=== PATIENT | male | born 1950 | race Caucasian/White ===

== ENCOUNTER → 2016-11-14 | Day surgery (SDC) | payer MEDICARE ==
[~2016-11-14] MED LIST: AMLO10 PO; AMLO5TAB2 PO; ASPI1TAB91 PO; BETH10 PO; BUPR100CR PO; BUPR150T5 PO; CARV25TA PO; CITA40TA4 PO; CLON1TAB PO; GLYB5TAB3 PO; HOUR ENERGY; HYDR25TA5 PO; INSU1.2I SQ; INSU1INJ14 SQ; LACTATED RINGER'S 1000 ML INJ 1,000 ML ONE; LEVO50TA4 PO; LOSA25TA PO; METF-382 PO; METF1000 PO; MULT-135 PO; MULTTAB67 PO; OMEP20TA PO; PROPOFOL 100 MG/10 ML INJ IV ONE; URSO300C2 PO; ZOCO10TA PO
--- NOTE | 2016-11-14 09:17 | GIPROC ---
[facility] [address] [facility], [address] EGD PROCEDURE REPORT EXAM DATE: 11/14/2016 PATIENT NAME: Randall Estes MR #: [id number] BIRTHDATE: 1950 ATTENDING: Pat Mariscal MD ORDER #: [id number] CHIEF SECURITY OFFICER: Marlys Dominguez MAMMALOGY TEACHER STATUS: outpatient INDICATIONS: The patient is a 66 yr old male here for an EGD due to history of esophageal reflux PROCEDURE PERFORMED: EGD w/ biopsy MEDICATIONS: None and Per Anesthesia. TOPICAL ANESTHETIC: CONSENT: The patient understands the risks and benefits of the procedure and understands that these risks include, but are not limited to: sedation, allergic reaction, infection, perforation and/or bleeding. Alternative means of evaluation and treatment include, among others: physical exam, x-rays, and/or surgical intervention. The patient elects to proceed with this endoscopic procedure. medical equipment was checked for proper function. Hand hygiene and appropriate measures for infection prevention was taken. After the risks, benefits and alternatives of the procedure were thoroughly explained, Informed consent was verified, confirmed and timeout was successfully executed by the treatment team. The patient was anesthetized with topical anesthesia and the EC-[id number] ([id number]) endoscope was introduced through the mouth and advanced to the second portion of the duodenum. Retroflexed views revealed no abnormalities The gastroscope was then slowly withdrawn and removed. 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 The length of circumferential Bailey's was 1cm ([place] C1). There was no nodular mucosa noted in the Bailey's segment. A biopsy was performed using cold forceps. Sample sent for histology. STOMACH: There was erythematous moderate gastritis in the gastric antrum. A biopsy was performed using cold forceps. Sample sent for histology. A polypoid shaped sessile polyp ranging between 3-7mm in size with a friable surface was found in the gastric fundus. A biopsy was performed using cold forceps. Sample sent for histology. DUODENUM: The duodenal mucosa appeared normal. ADVERSE EVENTS: There were no complications. IMPRESSIONS: 1. 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 There was erythematous gastritis in the gastric antrum; biopsy was performed 3. Sessile polyp ranging between 3-7mm in size was found in the gastric fundus; biopsy was performed 4. Normal duodenal mucosa 5. Retroflexed views revealed no abnormalities RECOMMENDATIONS: 1. Await biopsy results. Biopsy results will not be ready for 7-10 days. If you don't hear from us in two weeks, call our office for biopsy results. 2. Anti-reflux regimen 3. Continue PPI 4. Avoid NSAIDS PATIENT CONDITION: stable DISPOSITION: Home REPEAT EXAM: Return 1 year EGD Pat Mariscal MD eSigned: Pat Mariscal MD 11/14/2016 9:16 AM cc: Michoacano Kinney M.D. PATIENT NAME: Randall Estes MR#: [id number]
== END | disposition home or self-care (01) ==
LOC: ESDC 08:09
PROVIDERS: ATTEND Internal Medicine Gastroenterology
DX: K21.9 Gastro-esophageal reflux disease without esophagitis (principal); K22.70 Barrett's esophagus without dysplasia; K29.70 Gastritis, unspecified, without bleeding; K31.7 Polyp of stomach and duodenum; E11.9 Type 2 diabetes mellitus without complications; Z79.4 Long term (current) use of insulin
CPT/HCPCS: 00740; 43239; 82948; 88305; 88312; J3010; J7120

== ENCOUNTER 2016-12-14 17:26 | Observation (INO) | payer MEDICARE ==
[~2016-12-14] VITALS: Ht 172.7 cm; Wt 123.0 kg
[~2016-12-14 17:26] MED LIST changes: -AMLO5TAB2 PO; -ASPI1TAB91 PO; -BUPR150T5 PO; -CITA40TA4 PO; -INSU1INJ14 SQ; -LACTATED RINGER'S 1000 ML INJ 1,000 ML ONE; -LOSA25TA PO; -METF1000 PO; -MULTTAB67 PO; -PROPOFOL 100 MG/10 ML INJ IV ONE; -URSO300C2 PO
[2016-12-14 17:28] VITALS: BP 188/88; PULSE 66; RESP 20; TEMP 98.4; O2SAT 98
[2016-12-14] MEDS: NITROGLYCERIN 0.4 MG SL 25 TABS/BTL SL SCH ×3 (18:30→18:40)
[2016-12-14] MEDS ORDERED: ASPIRIN 325 MG TAB PO ONE (18:30)
[2016-12-14] MEDS ORDERED: SODIUM CHLORIDE 0.9% FLUSH 10 ML FLUSH IVF PRN (18:30)
[2016-12-14 18:38] VITALS: BP 191/90; PULSE 65; PULSE 66; RESP 18; O2SAT 98
[2016-12-14] MEDS ORDERED: AMLO5TAB2 PO (19:01)
[2016-12-14] MEDS ORDERED: METF1000 PO (19:01)
[2016-12-14] MEDS ORDERED: BUPR150T5 PO (19:01)
[2016-12-14] MEDS ORDERED: INSU1INJ14 SQ (19:02)
[2016-12-14] MEDS ORDERED: LOSA25TA PO (19:02)
[2016-12-14] MEDS ORDERED: ASPI1TAB91 PO (19:02)
[2016-12-14] MEDS ORDERED: CITA40TA4 PO (19:02)
[2016-12-14] MEDS ORDERED: MULTTAB67 PO (19:02)
[2016-12-14] MEDS ORDERED: URSO300C2 PO (19:06)
--- NOTE | 2016-12-14 19:20 | RADRPT ---
EXAM DATE/TIME: 12/14/2016 19:03 [facility] COMPARISON: CHEST SINGLE AP, May 12, 2010, 14:06. INDICATIONS : Chest pain. MEDICAL HISTORY : None. SURGICAL HISTORY : None. ENCOUNTER: Initial ACUITY: 2 days PAIN SCORE: 6/10 LOCATION: Right chest FINDINGS: A single view of the chest demonstrates the lungs to be symmetrically aerated without evidence of mas s, infiltrate or effusion. The cardiomediastinal contours are unremarkable. Osseous structures are intact. CONCLUSION: No evidence of acute cardiopulmonary disease. Justo Ramos MD on December 14, 2016 at 19:17 Board Certified Radiologist. This report was verified electronically.
[2016-12-14 19:21] LABS: AUTOMATED NEUTROPHIL # 6.7 TH/MM3 (1.8-7.7); BASOPHIL % 0.5 % (0.0-2.0); EOSINOPHIL # 0.3 TH/MM3 (0-0.4); EOSINOPHIL % 3.1 % (0.0-4.0); HEMATOCRIT 38.5 % (39.0-51.0); HEMO FLAGS DIFF FINAL; LYMPH % 22.1 % (9.0-44.0); LYMPHOCYTE # 2.2 TH/MM3 (1.0-4.8); MEAN CELL VOLUME 87.4 FL (80.0-100.0); MEAN CORPUSCULAR HEMOGLOBIN 29.1 PG (27.0-34.0); MEAN CORPUSCULAR HGB CONC 33.3 % (32.0-36.0); MONO % 6.1 % (0.0-8.0); NEUT % 68.2 % (16.0-70.0); PLATELET COUNT 169 TH/MM3 (150-450); RED BLOOD COUNT 4.41 MIL/MM3 (4.50-5.90); RED CELL DISTRIBUTION WIDTH 14.9 % (11.6-17.2); WHITE BLOOD COUNT 9.8 TH/MM3 (4.0-11.0)
[2016-12-14 19:31] LABS: APTT (PATIENT) 30.3 SEC (24.3-30.1); INTERNATIONAL NORMALIZED RATIO 1.1 RATIO; PROTHROMBIN TIME - PATIENT 11.7 SEC (9.8-11.6)
--- NOTE | 2016-12-14 19:35 | PD ---
HPI Chief Complaint: Chest Pain Time Seen by Provider: 17:58 Travel History International Travel<30 days: No Contact w/Intl Traveler<30days: No Traveled to known affect area: No History of Present Illness HPI This is a 66-year-old male patient with a past medical history of hypertension and type 2 diabetes hypercholesterolemia who presents with a complaint of intermittent chest pain noted to be on the right side of the chest described as sharp in nature. Patient notes associated lightheadedness and dizziness prior to the onset of pain. Chest pain started last p.m. chest pain noted as 5 out of 10 in intensity. Chest pain reported to be nonradiating and not associated with shortness of breath nausea vomiting or sweating. Patient states he had a cardiac stress test in the past more than 5 years ago and he is uncertain of the results. Patient did not take any aspirin prior to presentation to the ER. PFSH Past Medical History Arthritis: No Blood Disorders: No Anxiety: Yes Depression: Yes Heart Rhythm Problems: No Cancer: No Cardiovascular Problems: Yes (HTN) High Cholesterol: Yes Chest Pain: No Congestive Heart Failure: No Diabetes: Yes Patient Takes Glucophage: Yes Diminished Hearing: No Endocrine: Yes Gastrointestinal Disorders: Yes (Gastroparesis,GERD) GERD: Yes Glaucoma: No Genitourinary: No Hepatitis: No Hiatal Hernia: No Hypertension: Yes Immune Disorder: No Implanted Vascular Access Dvce: No Kidney Stones: No Medical other: No Musculoskeletal: Yes (SPINAL STENOSIS) Neurologic: Yes (NECK) Psychiatric: No Reproductive: No Respiratory: Yes (SLEEP APNEA-CPAP) Immunizations Current: Yes Myocardial Infarction: No Pancreatitis: Yes Renal Failure: Yes Thyroid Disease: No Ulcer: No Past Surgical History Abdominal Surgery: Yes (HERNIA, ERCP- REMOVAL OF STENT/LAP NIDHI) Appendectomy: No Cardiac Surgery: No Cholecystectomy: Yes Ear Surgery: No Endocrine Surgery: No Eye Surgery: No Genitourinary Surgery: Yes Gynecologic Surgery: No Joint Replacement: No Neurologic Surgery: Yes (CERVICAL FUSION) Oral Surgery: No Pacemaker: No Thoracic Surgery: No Other Surgery: Yes ( HYDROCELECTOMY) Social History Alcohol Use: Yes (RARELY) Tobacco Use: No Substance Use: No Allergies-Medications (Allergen,Severity, Reaction): Coded Allergies: Cat Dander (Verified Allergy, Severe, 06/15/16) Shrimp (Verified Allergy, Severe, Hives, 06/15/16) Vancomycin (Verified Adverse Reaction, Severe, DAVID SYNDROME, 06/15/16) Reported Meds & Prescriptions Reported Meds & Active Scripts Active Reported Ursodiol 300 Mg Cap 300 Mg PO TID Tresiba Flextouch Pen Inj (Insulin Degludec Inj) 300 unit/3 ML Pen 8 Units SQ DAILY Losartan (Losartan Potassium) 25 Mg Tab 25 Mg PO DAILY Citalopram (Citalopram Hydrobromide) 40 Mg Tab 40 Mg PO DAILY Aspirin Adult Low Strength (Aspirin) 81 Mg Tabdr 81 Mg PO DAILY Multiple Vitamin 1 Tab 1 Tab PO DAILY Metformin (Metformin HCl) 1,000 Mg Tab 500 Mg PO BID With meals Bupropion HCl ER 12 HR (Bupropion HCl) 150 Mg Tab 150 Mg PO Q12HR Amlodipine (Amlodipine Besylate) 5 Mg Tab 5 Mg PO DAILY Zocor (Simvastatin) 10 Mg Tab 10 Mg PO DAILY Omeprazole 20 Mg Tab 20 Mg PO BID Take 30-60 minutes before breakfast and dinner Levothyroxine (Levothyroxine Sodium) 50 Mcg Tab 50 Mcg PO DAILY Glyburide 5 Mg Tab 5 Mg PO BID Take with meals at the same time each day Clonazepam 1 Mg Tab 1 Mg PO DAILY PRN Carvedilol 25 Mg Tab 25 Mg PO BID Urecholine (Bethanechol Chloride) 10 Mg Tab 10 Mg PO Q8HR Hydrochlorothiazide 25 Mg Tab 25 Mg PO DAILY [5 hour energy] Review of Systems ROS Limitations: Other: (none ) General / Constitutional: No: Fever, Chills, Weight Gain, Weight Loss, Other Eyes: No: Diploplia, Blurred Vision, Photophobia, Drainage, Redness, Foreign Body Sensation, Pain, Tearing, Blind Spots, Visual changes, Blindness, Other HENT: No: Headaches, Vertigo, Lightheadedness, Sore Throat, Rhinitis, Rhinorrhea, Congestion, Nosebleed, Neck Stiffness, Neck Pain, Masses, Gingival Bleeding, Dental Difficulties, Ear Discharge, Earache, Other Cardiovascular: Positive: Chest Pain or Discomfort, Other (lightheadedness), No: Palpitations, Irregular Rhythm, Tachycardia, Diaphoresis, Syncope, Dyspnea on exertion, Varicosities, Edema, Cyanosis, Varicosities, Phlebitis, Claudication Respiratory: No: Cough, Shortness of Breath, Wheezing, Sneezing, Orthopnea, Hemoptysis, Stridor, Night Sweats, Pleuritic Pain, Other Gastrointestinal: No: Nausea, Vomiting, Diarrhea, Abdominal Pain, Hematemesis, Hematochezia, Constipation, Changes in Bowel Habits, Indigestion, Dysphagia, Loss of Appetite, Other Genitourinary: No: Urgency, Frequency, Dysuria, Nocturia, Hematuria, Decreased Urinary Output, Oliguria, Hesitancy, Dribbling, Incontinence, Pelvic Pain, Flank Pain, Dyspareunia, Discharge, Dysmenorrhea, Menorrhagia, Metorrhagia, Vaginal Bleeding, Other Musculoskeletal: No: Myalgias, Arthralgias, Limited ROM, Weakness, Cramping, Edema, Pain, Atrophy, Other Skin: No Rash, No Itching, No Dryness, No Lumps, No Hives, No Change in Pigmentation, No Change in nails, No Alopecia, No Lesions, No Breast Lumps, No Breast Tenderness, No Breast Swelling, No Other Neurologic: Positive: Other (dizziness associated with lightheadedness), No: Weakness, Dizziness, Syncope, Focal Abnormalities, Coordination Problem, Tremor , Ataxia, Headache, Change in Mentation, Slurred Speech, Paresthesia, Incontinence, Seizures, Sensory Disturbance Psychiatric: No: Anxiety, Depression, Suicidal Ideations, Disorder of Thought, Mood Disorder, Substance Abuse, Homicidal Ideation, Other Endocrine: No: Heat Intolerance, Cold Intolerance, Polyuria, Polydipsia, Other Hematologic/Lymphatic: No: Easy Bruising, Lymph Node Enlargement, Other Physical Exam Narrative GENERAL: 66-year-old male in no apparent distress SKIN: Focused skin assessment warm/dry.no lesions no cyanosis no erythema HEAD: Atraumatic. Normocephalic. EYES: Pupils equal and round and reactive . No scleral icterus. No injection or drainage. ENT: No nasal bleeding or discharge. Mucous membranes pink and moist. NECK: Trachea midline. No JVD. CARDIOVASCULAR: S1-S2 appreciated PMI is displaced laterally. Regular rate and rhythm. No murmur appreciated. Pulses normal throughout. Chest wall nontender on palpation RESPIRATORY: No accessory muscle use. Clear to auscultation. Breath sounds equal bilaterally. GASTROINTESTINAL: Abdomen soft, non-tender, nondistended. Hepatic and splenic margins not palpable. Bowel sounds normal. No peritoneal signs. MUSCULOSKELETAL: No obvious deformities. No clubbing. No cyanosis. No edema. NEUROLOGICAL: Awake and alert and oriented 3.. No obvious cranial nerve deficits. Motor and sensory exam grossly within normal limits. Normal speech. No meningeal signs. PSYCHIATRIC: Appropriate mood and affect; insight and judgment normal. No suicidal or homicidal ideation. Data Data Last Documented VS Vital Signs Date Time Temp Pulse Resp B/P Pulse Ox O2 Delivery O2 Flow Rate FiO2 12/14/16 18:38 66 18 98 Room Air 12/14/16 18:38 191/90 12/14/16 17:28 98.4 Orders Electrocardiogram (12/14/16 18:19) Basic Metabolic Panel (Bmp) (12/14/16 18:19) Ckmb (Isoenzyme) Profile (12/14/16 18:19) Complete Blood Count With Diff (12/14/16 18:19) Magnesium (Mg) (12/14/16 18:19) Prothrombin Time / Inr (Pt) (12/14/16 18:19) Act Partial Throm Time (Ptt) (12/14/16 18:19) Troponin I (12/14/16 18:19) Chest, Single Ap (12/14/16 18:19) Ecg Monitoring (12/14/16 18:19) Bilateral Bp Monitoring (12/14/16 18:19) Iv Access Insert/Monitor (12/14/16 18:19) Oximetry (12/14/16 18:19) Oxygen Administration (12/14/16 18:19) Aspirin (Aspirin) (12/14/16 18:30) Sodium Chloride 0.9% Flush (Ns Flush) (12/14/16 18:30) Nitroglycerin Sl (Nitrostat Sl) (12/14/16 18:30) CKMB (12/14/16 18:50) CKMB% (12/14/16 18:50) Admit Order (Ed Use Only) (12/14/16 19:56) Activity Bed Rest With Brp (12/14/16 19:56) Vital Signs (Adult) Q4H (12/14/16 19:56) Cardiac Rhythm .As Directed (12/14/16 19:56) Notify Dr: Other .PRN (12/14/16 19:56) Notify Parameters (12/14/16 19:56) Resp Oxygen Nasal Cannula (12/14/16 ) Diet Npo (12/15/16 Breakfast) Ckmb (Isoenzyme) Profile (12/14/16 21:00) Ckmb (Isoenzyme) Profile (12/15/16 00:00) Troponin I (12/14/16 21:00) Troponin I (12/15/16 00:00) Electrocardiogram (12/14/16 19:56) Electrocardiogram (12/14/16 22:56) ^ Obtain (12/14/16 19:56) Sodium Chloride 0.9% Flush (Ns Flush) (12/14/16 20:00) Sodium Chloride 0.9% Flush (Ns Flush) (12/14/16 21:00) Nitroglycerin Sl (Nitrostat Sl) (12/14/16 20:00) Foreign Agent / Telemetry KATHIA.Q8H (12/14/16 19:56) Labs Laboratory Tests Test 12/14/16 18:50 White Blood Count 9.8 TH/MM3 Red Blood Count 4.41 MIL/MM3 Hemoglobin 12.8 GM/DL Hematocrit 38.5 % Mean Corpuscular Volume 87.4 FL Mean Corpuscular Hemoglobin 29.1 PG Mean Corpuscular Hemoglobin 33.3 % Concent Red Cell Distribution Width 14.9 % Platelet Count 169 TH/MM3 Mean Platelet Volume 8.7 FL Neutrophils (%) (Auto) 68.2 % Lymphocytes (%) (Auto) 22.1 % Monocytes (%) (Auto) 6.1 % Eosinophils (%) (Auto) 3.1 % Basophils (%) (Auto) 0.5 % Neutrophils # (Auto) 6.7 TH/MM3 Lymphocytes # (Auto) 2.2 TH/MM3 Monocytes # (Auto) 0.6 TH/MM3 Eosinophils # (Auto) 0.3 TH/MM3 Basophils # (Auto) 0.0 TH/MM3 CBC Comment DIFF FINAL Differential Comment Prothrombin Time 11.7 SEC Prothromb Time International 1.1 RATIO Ratio Activated Partial 30.3 SEC Thromboplast Time Sodium Level 136 MEQ/L Potassium Level 3.4 MEQ/L Chloride Level 98 MEQ/L Carbon Dioxide Level 26.2 MEQ/L Anion Gap 12 MEQ/L Blood Urea Nitrogen 28 MG/DL Creatinine 1.43 MG/DL Estimat Glomerular Filtration 50 ML/MIN Rate Random Glucose 133 MG/DL Calcium Level 8.6 MG/DL Magnesium Level 2.3 MG/DL Total Creatine Kinase 102 U/L Creatine Kinase MB 0.8 NG/ML Troponin I LESS THAN 0.02 NG/ML MDM Medical Decision Making Medical Screen Exam Complete: Yes Emergency Medical Condition: Yes Medical Record Reviewed: Yes Interpretation(s) EKG shows normal sinus rhythm left axis deviation and borderline LVH [address] elevation in lead V2 and Q waves in lead 3 Differential Diagnosis Differential differential diagnose acute coronary syndrome versus atypical chest pain lightheadedness and dizziness Narrative Course This is a 66-year-old male with a past medical history of hypertension and type 2 diabetes hypercholesterolemia who presents with a one-day history of right- sided chest pain associated with lightheadedness and dizziness. Chest pain reported to occur at rest as well as with exertion. EKG shows [address] elevation in V2 and Q waves in lead 3 only chest x-ray unremarkable troponin 1 negative patient given aspirin 325 mg orally. Initially ordered sublingual nitroglycerin every 5 minutes 3 as needed for pain. Patient states pain not ongoing so declined sublingual nitroglycerin. Ordered Nitropaste 1/2 inch. Patient to be admitted to the chest pain center for repeat cardiac enzymes every 3 hours reevaluation in the morning. For possible stress test. Procedures EKG Prior to Arrival: Yes HemaPrompt Point of Care Comment Rectal exam deferred patient declines stool guiac Diagnosis Primary Impression: Acute coronary Syndrome Admitting Information Admitting Physician Requests: Observation Condition: Stable Nadine Noyola MD Dec 14, 2016 19:35
[2016-12-14 19:47] LABS: CREATINE KINASE 102 U/L (39-308)
[2016-12-14 19:51] LABS: ANION GAP 12 MEQ/L (5-15); BICARBONATE 26.2 MEQ/L (21.0-32.0); BLOOD UREA NITROGEN 28 MG/DL (7-18); CHLORIDE 98 MEQ/L (98-107); GLOMERULAR FILTRATION RATE 50 ML/MIN (>89); MAGNESIUM 2.3 MG/DL (1.5-2.5); POTASSIUM 3.4 MEQ/L (3.5-5.1); SODIUM (NA) 136 MEQ/L (136-145)
[2016-12-14 20:00] LABS: CKMB 0.8 NG/ML (0.5-3.6)
[2016-12-14] MEDS ORDERED: SODIUM CHLORIDE 0.9% FLUSH 10 ML FLUSH IV FLUSH PRN (20:00)
[2016-12-14] MEDS ORDERED: NITROGLYCERIN 0.4 MG SL 25 TABS/BTL SL PRN (20:00)
[2016-12-14 20:07] VITALS: O2SAT 98
[2016-12-14] MEDS ORDERED: NITROGLYCERIN 2% OINT 1 GM PACKET TOPICAL ONE (20:15)
[2016-12-14] MEDS: SODIUM CHLORIDE 0.9% FLUSH 10 ML FLUSH IV FLUSH SCH (21:12)
[2016-12-14 21:59] VITALS: BP 185/87; PULSE 72; RESP 20; TEMP 98.1; O2SAT 95
[2016-12-14 22:51] LABS: CREATINE KINASE 96 U/L (39-308)
[2016-12-15 00:06] VITALS: BP 143/83; PULSE 77; RESP 19; TEMP 97.5; O2SAT 95
[2016-12-15 01:42] LABS: CREATINE KINASE 89 U/L (39-308)
[2016-12-15 03:04] VITALS: PULSE 80
[2016-12-15 05:07] VITALS: BP 148/67; PULSE 93; RESP 20; TEMP 96; O2SAT 96
[2016-12-15] MEDS ORDERED: ACETAMINOPHEN 500 MG CPLT PO PRN (07:15)
[2016-12-15] MEDS ORDERED: ONDANSETRON HCL 4 MG/2 ML VIAL IV PRN (07:15)
[2016-12-15 07:40] VITALS: PULSE 75
--- NOTE | 2016-12-15 07:46 | HHI.HP ---
HPI Primary Care Physician Coco Strong MD Chief Complaint Chest pain History of Present Illness 66-year-old male with significant medical history including diabetes type 2, hypertension, and hyperlipidemia presents to emergency room for further evaluation of chest pain. Onset Monday evening. Initially chest discomfort was intermittent, occurring every 1520 minutes. Location substernal. Characterized as "quick, stabbing pains." Duration of "no more than 2 seconds. " No radiation of pain. No known precipitating or relieving factors. Monday chest pain became more constant, therefore he went to [facility] urgent care. Chest pain nonexertional component. EKG was completed at urgent care and he was told EKG was slightly abnormal and directed to the ER. Approximately 2 weeks ago had a PCP appointment and a routine EKG was completed. At that time he was also told EKG was abnormal and was referred to Dr. Crawley for further evaluation. Appointment for Dr. Crawley is scheduled for next month. Review of Systems General: No fatigue,weakness, fever, chills, recent illness HEENT: No FORD, no vision changes, no nasal congestion or drainage CV: As stated above. No CP, pressure, no palpitations RESP: No SOB, cough, wheeze, or recent URI GI: No nausea, vomiting, bowel changes, diarrhea, or constipation. : No dysuria, urgency, frequency EXT: No lower leg edema, no paraesthesias MS: No discomfort or change in ROM NEURO: No difficulty with balance or motor/sensory deficits PSYCH: Anxiety and depression controlled on current medication regimen. SKIN: No rashes, no concerning lesions Past Family Social History Allergies: Coded Allergies: Cat Dander (Verified Allergy, Severe, 06/15/16) Shrimp (Verified Allergy, Severe, Hives, 06/15/16) Vancomycin (Verified Adverse Reaction, Severe, DAVID SYNDROME, 06/15/16) Past Medical History Hypertension, diabetes type 2, pancreatitis Past Surgical History Cholecystectomy, 2 cervical fusions, inguinal hernia repair Reported Medications Reported Ursodiol 300 Mg Cap 300 Mg PO TID Tresiba Flextouch Pen Inj (Insulin Degludec Inj) 300 unit/3 ML Pen 8 Units SQ DAILY Losartan (Losartan Potassium) 25 Mg Tab 25 Mg PO DAILY Citalopram (Citalopram Hydrobromide) 40 Mg Tab 40 Mg PO DAILY Aspirin Adult Low Strength (Aspirin) 81 Mg Tabdr 81 Mg PO DAILY Multiple Vitamin 1 Tab 1 Tab PO DAILY Metformin (Metformin HCl) 1,000 Mg Tab 500 Mg PO BID With meals Bupropion HCl ER 12 HR (Bupropion HCl) 150 Mg Tab 150 Mg PO Q12HR Amlodipine (Amlodipine Besylate) 5 Mg Tab 5 Mg PO DAILY Zocor (Simvastatin) 10 Mg Tab 10 Mg PO DAILY Omeprazole 20 Mg Tab 20 Mg PO BID Take 30-60 minutes before breakfast and dinner Levothyroxine (Levothyroxine Sodium) 50 Mcg Tab 50 Mcg PO DAILY Glyburide 5 Mg Tab 5 Mg PO BID Take with meals at the same time each day Clonazepam 1 Mg Tab 1 Mg PO DAILY PRN Carvedilol 25 Mg Tab 25 Mg PO BID Urecholine (Bethanechol Chloride) 10 Mg Tab 10 Mg PO Q8HR Hydrochlorothiazide 25 Mg Tab 25 Mg PO DAILY Active Ordered Medications Current Medications Medications (Trade) Dose Ordered Sig/Yael Route Start Time Stop Time Status Last Admin (Nitrostat Sl) 0.4 mg Q5M PRN SL 12/14/16 20:00 (Tylenol) 500 mg Q4H PRN PO 12/15/16 07:15 (Zofran Inj) 4 mg Q6H PRN IV 12/15/16 07:15 (Aspirin) 325 mg DAILY PO 12/15/16 09:00 Social History Known diabetes, hypertension, and hyperlipidemia. Lifelong nonsmoker. Denies any alcohol or illegal drug use. Ambulates independently. Past cardiac testing None Physical Exam Vital Signs Vital Signs Date Time Temp Pulse Resp B/P Pulse Ox O2 Delivery O2 Flow Rate FiO2 12/15/16 05:07 96.0 93 20 148/67 96 12/15/16 03:04 80 12/15/16 00:06 97.5 77 19 143/83 95 12/14/16 21:59 98.1 72 20 185/87 95 12/14/16 20:07 98 12/14/16 18:38 66 18 98 Room Air 12/14/16 18:38 98 Room Air 12/14/16 18:38 65 18 191/90 98 Room Air 12/14/16 18:38 66 69 98 Room Air 12/14/16 17:28 98.4 66 20 188/88 98 Room Air Physical Exam GENERAL: Alert WN, WD, NAD, pleasant, obese male HEAD: NC, AT EYES: Sclera clear, conjunctiva without injection NECK: Supple, no masses, trachea midline CV: RRR, without murmur, rub, gallop, no JVD, S1-S2 no S3-S4. RESP: Clear lungs throughout bilateral, no crackles, wheeze, rhonchi, symmetrical chest rise, nonlabored, able to speak in full sentences ABD: Soft, NT, ND, no masses, positive bowel tones EXT: Pulses +24, trace dependent edema MS: Normal tone 4 extremities, nontender, no obvious deformities, full range of motion NEURO: CN II through CN XII grossly intact, motor strength 5/5, gait WNL PSYCH: A+O 3, pleasant affect, appropriate speech, appropriate mood and affect , insight and judgment SKIN: Normal turgor, normal texture, no lesions, no rashes, brisk cap refill Laboratory Laboratory Tests Test 12/14/16 12/14/16 12/15/16 18:50 22:00 00:40 White Blood Count 9.8 Red Blood Count 4.41 Hemoglobin 12.8 Hematocrit 38.5 Mean Corpuscular Volume 87.4 Mean Corpuscular Hemoglobin 29.1 Mean Corpuscular Hemoglobin 33.3 Concent Red Cell Distribution Width 14.9 Platelet Count 169 Mean Platelet Volume 8.7 Neutrophils (%) (Auto) 68.2 Lymphocytes (%) (Auto) 22.1 Monocytes (%) (Auto) 6.1 Eosinophils (%) (Auto) 3.1 Basophils (%) (Auto) 0.5 Neutrophils # (Auto) 6.7 Lymphocytes # (Auto) 2.2 Monocytes # (Auto) 0.6 Eosinophils # (Auto) 0.3 Basophils # (Auto) 0.0 CBC Comment DIFF FINAL Differential Comment Prothrombin Time 11.7 Prothromb Time International 1.1 Ratio Activated Partial 30.3 Thromboplast Time Sodium Level 136 Potassium Level 3.4 Chloride Level 98 Carbon Dioxide Level 26.2 Anion Gap 12 Blood Urea Nitrogen 28 Creatinine 1.43 Estimat Glomerular Filtration 50 Rate Random Glucose 133 Calcium Level 8.6 Magnesium Level 2.3 Total Creatine Kinase 102 96 89 Creatine Kinase MB 0.8 Troponin I LESS THAN 0.02 LESS THAN 0.02 LESS THAN 0.02 Result Diagram: 12/14/16 0300 12/14/16 185 Imaging Last Impressions Chest X-Ray 12/14/16 181 Signed Impressions: Service Date/Time: Wednesday, December 14, 2016 19:03 - CONCLUSION: No evidence of acute cardiopulmonary disease. Justo Ramos MD Course EKGs Normal sinus rhythm, first-degree AV block, left axis deviation, poor R-wave progression, no ST or T-segment changes, septal Q waves noted unchanged from EKG in 2011 Assessment and Plan Assessment and Plan #1 Chest painadmitted to chest pain center. Ruled out with serial EKGs and cardiac enzymes. Seen and evaluated by Dr. Eron Ernst. Chest discomfort atypical however due to multiple risk factors will proceed with Lexiscan this a.m. If stress test unremarkable, will discharge later this afternoon. Discussed with patient if stress test unremarkable he may cancel referral appointment with Dr. Crawley. #2 Hypertensioncontinue losartan, amlodipine, and carvedilol. Continue to monitor. #3 Diabeteslow-dose SSI #4 Depressioncontinue Wellbutrin and Celexa Annetta Morrell Dec 15, 2016 07:46
[2016-12-15 07:58] VITALS: BP 164/81; PULSE 75; RESP 18; TEMP 97.8; O2SAT 98
[2016-12-15] MEDS ORDERED: GLUCAGON 1 MG/ML VIAL OTHER PRN (08:00)
[2016-12-15] MEDS ORDERED: DEXTROSE 50% IN WATER 50 ML VIAL(D50) IV PRN (08:00)
[2016-12-15] MEDS: SODIUM CHLORIDE 0.9% FLUSH 10 ML FLUSH IV FLUSH SCH (08:20)
[2016-12-15] MEDS ORDERED: MULTIVITAMIN TAB PO SCH (09:00)
[2016-12-15] MEDS ORDERED: ASPIRIN 325 MG TAB PO SCH (09:00)
[2016-12-15] MEDS ORDERED: LOSARTAN 25 MG TAB PO SCH (09:00)
[2016-12-15] MEDS ORDERED: PRAVASTATIN SOD 20 MG TAB PO SCH (09:00)
[2016-12-15] MEDS ORDERED: URSODIOL 300 MG CAP PO SCH (09:00)
[2016-12-15] MEDS ORDERED: PANTOPRAZOLE SOD 20 MG DELAYED RELEASE TAB PO SCH (09:00)
[2016-12-15] MEDS ORDERED: buPROPion HCL 150 MG SUSTAINED RELEASE TAB PO SCH (09:00)
[2016-12-15] MEDS ORDERED: amLODIPine BESYLATE 5 MG TAB PO SCH (09:00)
[2016-12-15] MEDS ORDERED: CITALOPRAM HYDROBROMIDE 40 MG TAB PO SCH (09:00)
[2016-12-15] MEDS ORDERED: CARVEDILOL 12.5 MG TAB PO SCH (09:00)
[2016-12-15] MEDS ORDERED: HYDROCHLOROTHIAZIDE 25 MG TAB PO SCH (09:00)
[2016-12-15] MEDS ORDERED: LEVOTHYROXINE SODIUM 50 MCG TAB PO SCH (09:00)
[2016-12-15] MEDS ORDERED: REGADENOSON INJ 0.4 MG/5 ML SYR ONE (09:47)
[2016-12-15] MEDS ORDERED: INSULIN ASPART SUPPLEMENTAL SCALE SQ SCH (11:00)
--- NOTE | 2016-12-15 11:56 | RADRPT ---
EXAM DATE/TIME: 12/15/2016 08:47 [facility] COMPARISON: No previous studies available for comparison. INDICATIONS : Right sided chest pain with dizziness for one day. Angina. DOSE: 35 mCi Tc99m Myoview at stress. 11 mCi Tc99m Myoview at rest. 0.4 mg Lexiscan STRESS SYMPTOMS: None. EJECTION FRACTION: 52% MEDICAL HISTORY : Diabetes mellitus type 2. Hypertension. Gastroesophageal reflux disease. SURGICAL HISTORY : Cholecystectomy. Fusion, cervical. ENCOUNTER: Initial ACUITY: 1 day PAIN SCALE: 5/10 LOCATION: Right chest TECHNIQUE: The patient underwent pharmacologic stress with infusion of prescribed dose. Continuous ECG tracing was monitored during stress. Gated SPECT imaging was performed after stress and conventional SPECT i maging was performed at rest. The examination was performed on a SPECT/CT scanner, both attenuation and non-corrected datasets were reviewed. FINDINGS: DISTRIBUTION: The maximum perfused segment at stress is in the anterolateral wall. PERFUSION STUDY: The pattern of perfusion at stress is within normal limits. GATED STUDY: There is intact wall motion and thickening without hypokinetic or dyskinetic segments. CONCLUSION: 1. No reversible perfusion defect to indicate stress-induced myocardial ischemia identified. RISK CATEGORY: Low (<1% Annual Mortality Rate) Rufus Pereira MD on December 15, 2016 at 11:54 Board Certified Radiologist. This report was verified electronically.
[2016-12-15 12:00] VITALS: BP 185/88; PULSE 64; RESP 18; TEMP 98.9; O2SAT 98
[2016-12-15] MEDS ORDERED: metFORMIN HCL 500 MG TAB PO SCH (12:15)
--- NOTE | 2016-12-15 12:19 | HHI.DCPOC ---
Discharge Care Plan Diagnosis: (1) Atypical chest pain (2) Diabetes (3) Hypertension Goals to Promote Your Health * To prevent worsening of your condition and complications * To maintain your health at the optimal level Directions to Meet Your Goals Take your medications as prescribed Follow your dietary instruction Follow activity as directed Keep your appointments as scheduled Take your immunizations and boosters as scheduled If your symptoms worsen call your PCP, if no PCP go to Urgent Care Center or Emergency Room Smoking is Dangerous to Your Health. Avoid second hand smoke Call the 24-hour hour crisis hotline for domestic abuse at Annetta Morrell Dec 15, 2016 12:19
[2016-12-15] MEDS ORDERED: BETHANECHOL CHL 10 MG TAB PO SCH (14:00)
[2016-12-15] MEDS ORDERED: glyBURIDE 5 MG TAB PO SCH (16:00)
--- NOTE | 2016-12-16 14:27 | EKG ---
Date Performed: 12/14/2016 Time Performed: 17:43:49 PTAGE: 66 years EKG: Sinus rhythm WITH FIRST DEGREE AV BLOCK INCOMPLETE RIGHT BUNDLE BRANCH BLOCK LEFT ANTERIOR FASCICULAR BLOCK MODER ATE VOLTAGE CRITERIA FOR LVH, CONSIDER NORMAL VARIANT ABNORMAL ECG NO PREVIOUS TRACING DOCTOR: Eron Ernst Interpretating Date/Time 12/16/2016 14:25:27
--- NOTE | 2016-12-16 14:27 | EKG ---
Date Performed: 12/15/2016 Time Performed: 00:11:24 PTAGE: 66 years EKG: Sinus rhythm WITH FIRST DEGREE AV BLOCK LEFT ANTERIOR FASCICULAR BLOCK VOLTAGE CRITERIA FOR LVH ABNORMAL ECG PREVIOUS TRACING : 12/14/2016 22.18 Since previous tracing, no significant change noted DOCTOR: Eron Ernst Interpretating Date/Time 12/16/2016 14:24:37
--- NOTE | 2016-12-16 14:27 | EKG ---
Date Performed: 12/14/2016 Time Performed: 22:18:21 PTAGE: 66 years EKG: Sinus rhythm LEFT ANTERIOR FASCICULAR BLOCK MODERATE VOLTAGE CRITERIA FOR LVH, CONSIDER NORMAL VARIANT PREVIOUS TRACING : 12/14/2016 17.43 Since previous tracing, no significant change noted DOCTOR: Eron Ernst Interpretating Date/Time 12/16/2016 14:24:58
--- NOTE | 2016-12-16 14:31 | TR ---
Date Performed: 12/15/2016 Time Performed: 09:33:39 DOCTOR: Eron Ernst DRUG LIST: CLINICAL HISTORY: REASON FOR TEST: REASON FOR ENDING: OBSERVATION: CONCLUSION: Lexiscan stress test was performed under standard four minute protocol. Radionuclid e was injected one minute prior to ending the test. No electrocardiographic abormalities were present to suggest ischemia. Nuclear imaging and interpretation are pending. COMMENTS:
== END 2016-12-15 13:51 | disposition home or self-care (01) ==
LOC: NEPC 17:26 → NEDA 20:01 → NEPHCDU 21:27
PROVIDERS: ADMIT Internal Medicine Cardiovascular Disease; ATTEND Internal Medicine Cardiovascular Disease
DX: R07.89 Other chest pain (principal); E11.9 Type 2 diabetes mellitus without complications; I10 Essential (primary) hypertension; F32.9 Major depressive disorder, single episode, unspecified; E78.5 Hyperlipidemia, unspecified; F41.9 Anxiety disorder, unspecified; E78.00 Pure hypercholesterolemia, unspecified; K21.9 Gastro-esophageal reflux disease without esophagitis; Z88.1 Allergy status to other antibiotic agents; Z91.013 Allergy to seafood; Z91.09 Other allergy status, other than to drugs and biological substances; Z79.82 Long term (current) use of aspirin; Z79.84 Long term (current) use of oral hypoglycemic drugs
CPT/HCPCS: 71010; 78452; 80048; 82550; 82552; 82948; 83735; 84484; 85025; 85610; 85730; 93005; 93017; 99285; A9502; G0378; J2785

== ENCOUNTER 2017-11-04 18:18 | Emergency (ER) | payer MEDICARE ==
[~2017-11-04] VITALS: Ht 172.7 cm; Wt 122.5 kg
[~2017-11-04 18:18] MED LIST changes: -AMLO10 PO; +AMLO5TAB2 PO; +ASPI81TA16 PO; +AUGM500T7 PO; -BUPR100CR PO; +BUPR150T5 PO; +CIPR-9 PO; +CITA40TA4 PO; -HOUR ENERGY; -INSU1.2I SQ; +INSU1INJ14 SQ; +LOSA25TA PO; -METF-382 PO; +METF1000 PO; -MULT-135 PO; +MULTTAB67 PO; -OMEP20TA PO; +OMEP20TA93 PO; +URSO300C2 PO
[2017-11-04 18:28] VITALS: BP 119/86; PULSE 72; RESP 18; TEMP 98.5; O2SAT 98
--- NOTE | 2017-11-04 18:59 | PD ---
HPI Chief Complaint: Fall Time Seen by Provider: 18:47 Travel History International Travel<30 days: No Contact w/Intl Traveler<30days: No Traveled to known affect area: No History of Present Illness HPI 67-year-old male with history of spinal stenosis, scheduled for outpatient MRI in the near future, here for evaluation of right lower back pain after a mechanical fall while doing gardening. The patient reports that he tripped backwards on a piece of equipment and fell into a lanier. He denies head injury or LOC. He landed onto his right hip/buttock. He has had constant pain in this area since then which is moderate, intermittently worse at times described as spasms, worse with movements, slightly improved with rest. He denies any other injuries aside from slight superficial abrasions to his right lateral leg. He has been able to ambulate and bear weight, however this causes some pain. No urinary incontinence. No paresthesias or motor deficits. PFSH Past Medical History Arthritis: No Blood Disorders: No Anxiety: Yes Depression: Yes Heart Rhythm Problems: No Cancer: No Cardiac Catheterization: No Cardiovascular Problems: Yes (HTN, ekg with dr. to couple weeks ago showed abnormality) High Cholesterol: No Chest Pain: No Congestive Heart Failure: No Diabetes: Yes Patient Takes Glucophage: Yes Diminished Hearing: No Endocrine: Yes Gastrointestinal Disorders: Yes (Gastroparesis,GERD) GERD: Yes Glaucoma: No Genitourinary: No Hepatitis: No Hiatal Hernia: No Hypertension: Yes Immune Disorder: No Implanted Vascular Access Dvce: No Kidney Stones: No Medical other: No Musculoskeletal: Yes (SPINAL STENOSIS) Neurologic: Yes (NECK) Psychiatric: No Reproductive: No Respiratory: Yes (SLEEP APNEA-CPAP) Immunizations Current: Yes Myocardial Infarction: No Pancreatitis: Yes Renal Failure: Yes Thyroid Disease: No Ulcer: No Tetanus Vaccination: Unknown Past Surgical History Abdominal Surgery: Yes (HERNIA, ERCP- REMOVAL OF STENT/LAP NIDHI) Appendectomy: No Cardiac Surgery: No Cholecystectomy: Yes Coronary Artery Bypass Graft: No Ear Surgery: No Endocrine Surgery: No Eye Surgery: No Genitourinary Surgery: Yes Gynecologic Surgery: No Joint Replacement: No Neurologic Surgery: Yes (CERVICAL FUSION) Oral Surgery: No Pacemaker: No Thoracic Surgery: No Other Surgery: Yes ( HYDROCELECTOMY) Social History Alcohol Use: Yes (RARELY) Tobacco Use: No Substance Use: No Allergies-Medications (Allergen,Severity, Reaction): Coded Allergies: cat dander (Unverified Allergy, Severe, 11/04/17) shrimp (Unverified Allergy, Severe, Hives, 11/04/17) vancomycin (Unverified Adverse Reaction, Severe, DAVID SYNDROME, 11/04/17) Reported Meds & Prescriptions Reported Meds & Active Scripts Active Reported Tresiba Flextouch Pen Inj (Insulin Degludec Inj) 300 unit/3 ML Pen 10 Units SQ DAILY Bupropion HCl 100 Mg Tab 100 Mg PO BID Ursodiol 300 Mg Cap 300 Mg PO TID Losartan (Losartan Potassium) 25 Mg Tab 25 Mg PO DAILY Citalopram (Citalopram Hydrobromide) 40 Mg Tab 40 Mg PO DAILY Aspirin Adult Low Strength (Aspirin) 81 Mg Tabdr 81 Mg PO DAILY Multiple Vitamin 1 Tab 1 Tab PO DAILY Metformin (Metformin HCl) 1,000 Mg Tab 1,000 Mg PO BID With meals Amlodipine (Amlodipine Besylate) 5 Mg Tab 5 Mg PO DAILY Zocor (Simvastatin) 10 Mg Tab 10 Mg PO DAILY Omeprazole 20 Mg Tab 20 Mg PO DAILY Take 30-60 minutes before breakfast and dinner Levothyroxine (Levothyroxine Sodium) 50 Mcg Tab 50 Mcg PO DAILY Glyburide 5 Mg Tab 5 Mg PO BID Take with meals at the same time each day Clonazepam 1 Mg Tab 1 Mg PO DAILY PRN Carvedilol 25 Mg Tab 25 Mg PO BID Urecholine (Bethanechol Chloride) 10 Mg Tab 10 Mg PO Q8HR Hydrochlorothiazide 25 Mg Tab 25 Mg PO DAILY Review of Systems Except as stated in HPI: all other systems reviewed are Neg Physical Exam Narrative GENERAL: Well-developed, well-nourished, awake, alert, comfortable, no apparent distress. SKIN: Focused skin assessment warm/dry. Superficial abrasions to right lateral/ anterior leg, no lacerations. HEAD: Atraumatic. Normocephalic. EYES: Pupils equal and round. No scleral icterus. No injection or drainage. ENT: No nasal bleeding or discharge. Mucous membranes pink and moist. NECK: Trachea midline. No JVD. No midline cervical spine step-off or tenderness. CARDIOVASCULAR: Regular rate and rhythm. Bilateral dorsalis pedis pulses are brisk and equal. RESPIRATORY: No accessory muscle use. Clear to auscultation. Breath sounds equal bilaterally. GASTROINTESTINAL: Abdomen soft, non-tender, nondistended. Hepatic and splenic margins not palpable. MUSCULOSKELETAL: No obvious deformities. No clubbing. No cyanosis. No edema. No midline thoracic or lumbar spine step-off or tenderness. There is moderate right SI joint tenderness. Normal range of flexion and extension in bilateral lower extremities at the hip, knee, and ankle joint with normal muscle strength. NEUROLOGICAL: Awake and alert. No obvious cranial nerve deficits. Motor grossly within normal limits. Normal speech. Bilateral lower extremities are neurovascularly intact. PSYCHIATRIC: Appropriate mood and affect; insight and judgment normal. Data Data Last Documented VS Vital Signs Date Time Temp Pulse Resp B/P (MAP) Pulse Ox O2 Delivery O2 Flow Rate FiO2 11/04/17 18:28 98.5 72 18 119/86 (97) 98 Orders Orders Spine, Lumbar Comp W/Obliq (11/04/17 ) Pelvis, Ap Only (Routine) (11/04/17 ) Morphine Inj (Morphine Inj) (11/04/17 19:00) Cyclobenzaprine (Flexeril) (11/04/17 19:00) MDM Medical Decision Making Medical Screen Exam Complete: Yes Emergency Medical Condition: Yes Differential Diagnosis Low back strain, vertebral fracture, pelvic fracture, hip fracture, contusion Narrative Course Vital signs are within normal limits. X-ray lumbar spine: CONCLUSION: 1. Degenerative changes and scoliosis of the lumbar spine. 2. No acute compression fracture, spondylolisthesis or spondylolysis. Pelvis x-ray: CONCLUSION: No acute fracture or dislocation. Degenerative changes involving the lower lumbar spine and bilateral hips. Patient was made aware of all findings. He was given IM morphine and oral Flexeril with some relief of pain. There are no physical exam findings of spinal cord compression. He believes he will be able to manage his symptoms at home and his will help him. I showed him some stretches that he can perform. He was advised to follow-up with his orthopedist Dr. Hilliard this week. He was informed on when to return to the emergency department. He verbalizes understanding and agreement with plan. Diagnosis Primary Impression: Lower back injury Qualified Codes: S39.92XA - Unspecified injury of lower back, initial encounter Referrals: Randy Hilliard MD 3 days Primary Care Physician 3 days Additional Instructions: Follow-up with your primary care physician this week. Follow-up with your orthopedist this week. Return to the emergency department for worsening symptoms or any other concerns. Scripts Cyclobenzaprine (Flexeril) 10 Mg Tab 10 MG PO BID for Muscle Spasm, #20 TAB 0 Refills Prov: Lowell Holland MD 11/04/17 Oxycodone-Acetaminophen (Percocet) 5-325 mg Tab 1 TAB PO Q6H Y for PAIN, #20 TAB 0 Refills Prov: Lowell Holland MD 11/04/17 Disposition: 01 DISCHARGE HOME Condition: Stable Lowell Holland MD November 04, 2017 18:59
[2017-11-04] MEDS ORDERED: MORPHINE SULFATE 8 MG/ML INJ IM ONE (19:00)
[2017-11-04] MEDS ORDERED: CYCLOBENZAPRINE HCL 10 MG TAB PO ONE (19:00)
[2017-11-04] MEDS ORDERED: BUPR100T4 PO (19:49)
[2017-11-04] MEDS ORDERED: INSU1INJ14 SQ (19:49)
--- NOTE | 2017-11-04 20:37 | RADRPT ---
EXAM DATE/TIME: 11/04/2017 20:11 [facility] COMPARISON: No previous studies available for comparison. INDICATIONS : Pain post fall. MEDICAL HISTORY : Hypertension. Gastroparesis. GERD. Pancreatitis. Renail failure. UTI. Diabetes. Hypothyroidism. Spina l stenosis. Osteoarthritis. SURGICAL HISTORY : Cholecystectomy. Hydrocelectomy. Cervical fusion. Hernia repair. ENCOUNTER: Initial ACUITY: 1 day PAIN SCORE: 10/10 LOCATION: Pelvis. FINDINGS: A single frontal view of the pelvis demonstrates no evidence of fracture. The bony pelvic ring is in tact. Bony mineralization is normal. Degenerative changes are noted involving the lower lumbar spin e and bilateral hips. The soft tissues are intact. CONCLUSION: No acute fracture or dislocation. Degenerative changes involving the lower lumbar spi ne and bilateral hips. Jamarcus Gregg MD on November 04, 2017 at 20:34 Board Certified Radiologist. This report was verified electronically.
--- NOTE | 2017-11-04 20:39 | RADRPT ---
EXAM DATE/TIME: 11/04/2017 20:12 [facility] COMPARISON: No previous studies available for comparison. INDICATIONS : Pain post fall. MEDICAL HISTORY : Hypertension. Gastroparesis. GERD. Pancreatitis. Renail failuire. UTI. Diabetes. Hypothryoidism. Spin al stenosis. Osteoarthritis. SURGICAL HISTORY : Cholecystectomy. Hydrocelectomy. Cervical fusion. Hernia repair. ENCOUNTER: Initial ACUITY: 1 day PAIN SCORE: 10/10 LOCATION: Lower back. FINDINGS: Degenerative changes and scoliosis of the lumbar spine are noted. There is no acute compression fract ure, spondylolisthesis or spondylolysis. CONCLUSION: 1. Degenerative changes and scoliosis of the lumbar spine. 2. No acute compression fracture, spondylolisthesis or spondylolysis. Jamarcus Gregg MD on November 04, 2017 at 20:36 Board Certified Radiologist. This report was verified electronically.
[2017-11-04] MEDS ORDERED: CYCL10TA PO (20:52)
[2017-11-04] MEDS ORDERED: PERC5TAB12 PO (20:52)
== END 2017-11-04 21:10 | disposition home or self-care (01) ==
LOC: NEPD 18:18
DX: S39.92XA Unspecified injury of lower back, initial encounter (principal); W18.09XA Striking against other object with subsequent fall, initial encounter; Y93.H2 Activity, gardening and landscaping; F41.9 Anxiety disorder, unspecified; F32.9 Major depressive disorder, single episode, unspecified; I10 Essential (primary) hypertension; E11.9 Type 2 diabetes mellitus without complications; K31.84 Gastroparesis; K21.9 Gastro-esophageal reflux disease without esophagitis
CPT/HCPCS: 72110; 72170; 96372; 99283; J2270

== ENCOUNTER → 2017-12-21 | Day surgery (SDC) | payer MEDICARE ==
[~2017-12-21] VITALS: Ht 172.7 cm; Wt 128.2 kg
[~2017-12-21] MED LIST changes: +ACETAMINOPHEN 1000 MG/100 ML 100 ML IV ONE; +ACETAMINOPHEN/HYDROcodone 325 MG/7.5 MG TAB PO PRN; -AUGM500T7 PO; +BACITRACIN TOP OINT 15 GM TUBE ONE; +BETAMETHASONE SOD PHOS/ACETATE SUSP 30 MG/5 ML VIAL ONE; +BUPIVACAINE/EPINEPHRINE 0.5% PF 30 ML VIAL ONE; +BUPR100T4 PO; -BUPR150T5 PO; +CHLORHEXIDINE GLUCONATE 2 % 1 PACK (2 CLOTHS) TOPICAL PRN; +CHLORHEXIDINE GLUCONATE 4% SOLN 120 ML BTL TOPICAL SCH; -CIPR-9 PO; +DEXAMETHASONE SOD PHOS 4 MG/ML VIAL IV ONE; +DO NOT ADM ANY ANTICOAGULANT DRUGS PRN; +GELATIN 12 MM/7 MM FOAM ONE; +GENTAMICIN SULFATE 80 MG/2 ML VIAL ONE; +GLIM2TAB PO; -GLYB5TAB3 PO; +GLYCOPYRROLATE 1 MG/5 ML SYRINGE IV PUSH ONE; +HYDR-3366 PO; +KETOROLAC TROMETHAMINE 30 MG/ML (IVP) VIAL IV PUSH ONE; +LACTATED RINGER'S 1000 ML INJ 1,000 ML IV ONE; +LACTATED RINGER'S 1000 ML IV PRN; +LIDOCAINE HCL 1% PF 5 ML SYRINGE OTHER ONE; +METOPROLOL TARTRATE 25 MG TAB PO PRN; +MIDAZOLAM HCL 2 MG/2 ML VIAL ONE; +MORPHINE SULFATE 4 MG/ML INJ IV PUSH PRN; +NEOSTIGMINE 5 MG/5 ML SYRINGE IV PUSH ONE; +ONDANSETRON HCL 4 MG/2 ML VIAL IV PUSH ONE; +PHENYLEPH/NS 1000 MCG/10 ML SYR IV ONE; +POVIDONE IODINE 5% (ANTISEPSIS KIT) 4 APPLICATIONS EACH NARE PRN; +PROPOFOL 200 MG/20 ML AMP IV ONE; +ROCURONIUM INJ 50 MG/5 ML SYRINGE IV PUSH ONE; +SODIUM CHLORID 0.9% 500 ML IV PRN; +ceFAZolin 2 GM PREMIX 50 ML IV SCH; +ceFAZolin INJ 1,000 MG VIAL IV ONE; +ceFAZolin INJ 1,000 MG VIAL ONE; +ePHEDrine/NS 25 MG/5 ML SYRINGE IV ONE
--- NOTE | 2017-12-21 10:09 | PD.OP ---
cc: Randy Hilliard. Operative Report Date of Surgery: Dec 21, 2017 Preoperative Diagnosis: Lumbar spinal stenosis, L4-5, moderate to severe. Bilateral lumbosacral radiculopathy Postoperative Diagnosis: Same Procedure: Bilateral laminectomy L4-5 from the left with bilateral lateral recess decompression. Use of dilation port and microscope Anesthesia: General Surgeon: Randy Hilliard Tractor Crane Engineer(s): SHIREEN Gautam Operation and Findings: EBL: 100 cc INDICATION: This patient is a 67-year-old male with significant back hip and leg pain with weakness. Investigative studies shows evidence of severe spinal stenosis at L4-5. Despite conservative care, the patient continued to be painful and symptomatic. He presents for surgical treatment. NOTE: Carlota Gautam PA-C was present for the entire surgical procedure as my heel sprayer first. In my medical opinion her skill and care was necessary for the proper management of this patient. PROCEDURE: The patient was brought to the operating room and anesthetized in the supine position. The patient was rolled to a prone position on a Siva frame on a Andre table. All pressure points were protected in the back was scrubbed with alcohol followed by Hibiclens followed by ChloraPrep and draped sterilely. A timeout was done and antibiotics were given. AP and lateral radiographic images were used to identify the proper levels and perform skin markings. We started from the left side at the L4-5 level. A paramedian incision was made and an off-midline fascial incision was made. A dilating system was placed down to the interlaminar space and held provisionally to the side of the table. The microscope was brought into the field. A high-speed bur under the microscope was used to perform a bilateral laminectomy from that side. A lateral recess decompression bilaterally was accomplished using straight and angled Kerrison punches. A partial medial facetectomy was accomplished. The crossing and exiting nerve roots were completely decompressed. The wound was irrigated copiously. Hemostasis was controlled. The deep fascia was approximated with interrupted 0 Vicryl suture subcutaneous suture with 2-0 Vicryl suture and skin with running intradermal 3-0 Vicryl followed by Dermabond. A field block with local anesthesia was utilized. A sterile dressing was applied. The sponge count and needle counts and instrument counts were all correct. The patient tolerated the procedure well as taken to the recovery room in satisfactory condition. FINDINGS: There was severe bilateral lateral recess stenosis. The decompression was very satisfactory. There was no complication that was appreciated. Randy Hilliard MD Dec 21, 2017 10:09
--- NOTE | 2017-12-21 11:01 | RADRPT ---
EXAM DATE: 12/21/2017 10:47 AM EDT AGE/SEX: 67 years / Male INDICATIONS: L4-5 bilateral laminectomy. CLINICAL DATA: This is the patient's initial encounter. Patient reports that signs and symptoms have been present for 1 day and indicates a pain score of Nonresponsive. MEDICAL/SURGICAL HISTORY: . Diabetes mellitus type 2. Hypertension. Gastroesophageal reflux dis ease. Cholecystectomy. Fusion, cervical. COMPARISON: No prior exams available for comparison. FINDINGS: A single view of the spine was performed. There is a surgical probe directed towards the L4-L5 poste rior elements. CONCLUSION: Localization as described above. Electronically signed by: Justo Bueno MD 12/21/2017 11:00 AM EDT
[2017-12-21 13:04] VITALS: BP 158/77; PULSE 74; RESP 18; TEMP 98.5; O2SAT 96
== END | disposition home or self-care (01) ==
LOC: HSDC 05:58
PROVIDERS: ATTEND Orthopaedic Surgery Orthopaedic Surgery of the Spine
DX: M48.061 Spinal stenosis, lumbar region without neurogenic claudication (principal); M54.17 Radiculopathy, lumbosacral region; E11.9 Type 2 diabetes mellitus without complications; Z79.899 Other long term (current) drug therapy; Z79.84 Long term (current) use of oral hypoglycemic drugs
CPT/HCPCS: 00630; 63047; 72020; 76000; 82948; J0131; J0690; J0702; J1100; J1580; J1885; J2250; J2370; J2405; J2710; J3010; J7120